=== PATIENT | female | born 1930 | race Caucasian/White ===

== ENCOUNTER 2018-09-30 04:44 | Inpatient (IN) | payer MEDICARE, OTHER ==
[~2018-09-30] VITALS: Ht 152.4 cm; Wt 87.5 kg
[2018-09-30] MEDS ORDERED: DILTIAZEM HCL 30MG TABLET PO ONE (05:15)
[2018-09-30] MEDS ORDERED: ONDANSETRON HCL 4MG/2ML INJ IV STA (05:15)
[2018-09-30] MEDS ORDERED: MORPHINE SULFATE 4 MG/ML CPJ (NOT FOR IM USE) IV STA (05:15)
[2018-09-30] MEDS ORDERED: DILTIAZEM HCL 5MG/ML 5ML VIAL IV ONE ×2 (05:15→06:45)
[2018-09-30 05:52] LABS: CHLORIDE 108 mEq/L (98-107)
[2018-09-30 05:53] LABS: BASOPHILS % 0.4 % (0.0-2.0); EOSINOPHILS % 1.4 % (0.0-5.0); HEMATOCRIT. 40.8 % (36.0-48.0); HEMOGLOBIN. 13.4 g/dL (12.0-16.0); MEAN CORPUSCULAR HEMOGLOBIN 29.9 pg (28.0-32.0); MEAN CORPUSCULAR VOLUME 91.4 fL (81.0-99.0); MEAN PLATELET VOLUME 8.9 fl (7.4-10.4); MONOCYTES % 5.7 % (2.0-8.0); NEUTROPHILS % 57.5 % (40.0-76.0); PLATELET 183 x1000/uL (130-400); RED BLOOD CELL COUNT 4.46 mill/uL (4.2-5.4); RED CELL DISTRIBUTION WIDTH 13.6 % (11.6-14.6)
[2018-09-30 05:56] LABS: PARTIAL THROMBOPLASTIN TIME 28.2 sec (23.4-31.0); PROTHROMBIN TIME 9.8 sec (9.1-11.1)
[2018-09-30 06:22] LABS: *AMPHETAMINES SCREEN URINE NEGATIVE (NEGATIVE); *BARBITURATES SCREEN URINE NEGATIVE (NEGATIVE)
[2018-09-30 06:23] LABS: *BENZODIAZEPINES SCREEN URINE NEGATIVE (NEGATIVE); *COCAINE SCREEN URINE NEGATIVE (NEGATIVE); METHADONE URINE SCREEN NEGATIVE (NEGATIVE); OPIATES URINE SCREEN NEGATIVE (NEGATIVE); PHENCYCLIDINE URINE SCREEN NEGATIVE (NEGATIVE)
[2018-09-30 06:24] LABS: CANNABINOID URINE SCREEN NEGATIVE (NEGATIVE)
[2018-09-30] MEDS ORDERED: ENOXAPARIN 60MG/0.6ML SYR SUBCUT ONE (06:30)
[2018-09-30] MEDS ORDERED: ASPIRIN 81MG TABLET PO ONE (06:30)
[2018-09-30] MEDS ORDERED: DOCUSATE SODIUM 100MG CAPSULE PO PRN (08:00)
[2018-09-30] MEDS ORDERED: MAGNESIUM/ALUMINUM HYDROXIDE/SIMETHICONE 30ML UDC PO PRN (08:00)
[2018-09-30] MEDS ORDERED: ONDANSETRON HCL 4MG/2ML INJ IV PRN (08:00)
[2018-09-30] MEDS ORDERED: HYDROMORPHONE HCL/PF 2MG/ML CPJ IV PRN (08:00)
[2018-09-30] MEDS ORDERED: GUAIFENESIN 200MG/10ML SUGAR FREE UDC PO PRN (08:00)
[2018-09-30] MEDS ORDERED: ACETAMINOPHEN 325MG TABLET PO PRN (08:00)
[2018-09-30] MEDS ORDERED: HYDROCODONE/ACETAMINOPHEN 5/325MG TABLET PO PRN (08:00)
[2018-09-30] MEDS ORDERED: CLONIDINE 0.1MG TABLET PO PRN (08:00)
[2018-09-30] MEDS ORDERED: METOPROLOL TARTRATE 25MG TABLET PO SCH (09:00)
[2018-09-30 12:25] LABS: CLARITY URINE CLOUDY (CLEAR); KETONES URINE NEGATIVE (NEGATIVE); LEUKOCYTE ESTERASE URINE NEGATIVE (NEGATIVE); NITRITE URINE NEGATIVE (NEGATIVE); OCCULT BLOOD URINE 3+ (NEGATIVE); PH URINE 5.5 (4.5-8.0); PROTEIN URINE 1+ (NEGATIVE); SPECIFIC GRAVITY URINE 1.018 (1.005-1.030); UROBILINOGEN URINE 0.2 E.U./dL (0.2-1.0)
[2018-09-30 12:28] LABS: COLOR URINE BLOODY (YELLOW)
[2018-09-30 16:43] VITALS: BP 121/55
[2018-09-30 16:52] VITALS: BP 113/62
[2018-09-30 18:01] LABS: CREATINE KINASE MB FRACTION 2.4 ng/mL (0.5-3.6)
[2018-09-30] MEDS ORDERED: RANI300C8 PO (18:13)
[2018-09-30] MEDS ORDERED: HYDR25TA PO (18:13)
[2018-09-30] MEDS ORDERED: LISI40TA4 PO (18:13)
[2018-09-30] MEDS ORDERED: ASPI-1159 PO (18:13)
[2018-09-30] MEDS ORDERED: AMLO2.5T2 PO (18:13)
[2018-09-30] MEDS ORDERED: GABA-531 PO (18:13)
[2018-09-30] MEDS ORDERED: TOBRDO LEFTEYE (18:13)
[2018-09-30] MEDS ORDERED: REGADENOSON 0.4 MG/5 ML IV NR (18:25)
[2018-09-30] MEDS ORDERED: TOBR5DRO45 LEFTEYE (18:29)
[2018-09-30 20:00] VITALS: BP 148/56
[2018-09-30] MEDS: METOPROLOL TARTRATE 25MG TABLET PO SCH (20:20)
[2018-09-30] MEDS: ASPIRIN 81MG EC TABLET PO SCH (20:22)
[2018-09-30] MEDS: NITROGLYCERIN OINT 1GM/INCH UDPKT TD SCH (20:23)
[2018-10-01] VITALS: BP 118/38
[2018-10-01 04:00] VITALS: BP 134/50
[2018-10-01] MEDS: NITROGLYCERIN OINT 1GM/INCH UDPKT TD SCH ×3 (05:09→20:43)
[2018-10-01 07:27] LABS: BASOPHILS % 0.3 % (0.0-2.0); EOSINOPHILS % 1.3 % (0.0-5.0); HEMATOCRIT. 36.6 % (36.0-48.0); HEMOGLOBIN. 11.9 g/dL (12.0-16.0); LYMPHOCYTES % 30.6 % (20.0-50.0); MEAN CORPUSCULAR HEMOGLOBIN 29.8 pg (28.0-32.0); MEAN CORPUSCULAR VOLUME 91.6 fL (81.0-99.0); MEAN PLATELET VOLUME 8.9 fl (7.4-10.4); MONOCYTES % 6.1 % (2.0-8.0); NEUTROPHILS % 61.7 % (40.0-76.0); PLATELET 186 x1000/uL (130-400); RED BLOOD CELL COUNT 3.99 mill/uL (4.2-5.4); RED CELL DISTRIBUTION WIDTH 13.8 % (11.6-14.6)
[2018-10-01 07:39] LABS: CHLORIDE 108 mEq/L (98-107)
[2018-10-01 07:51] LABS: LDL CHOLESTEROL 93 mg/dL (5-100)
[2018-10-01 07:52] LABS: CREATINE KINASE 53 IU/L (26-192); CREATINE KINASE MB FRACTION 1.1 ng/mL (0.5-3.6)
[2018-10-01 07:53] LABS: HDL CHOLESTEROL 34 mg/dL (40-59); T4 FREE 1.02 ng/dL (0.76-1.46)
[2018-10-01 08:00] VITALS: BP 122/44
[2018-10-01] MEDS: METOPROLOL TARTRATE 25MG TABLET PO SCH ×2 (09:00→20:42)
[2018-10-01] MEDS ORDERED: REGADENOSON 0.4 MG/5 ML IV ONE (09:50)
[2018-10-01] MEDS: ENOXAPARIN 40MG/0.4ML SYR SUBCUT SCH (11:15)
[2018-10-01] MEDS: ASPIRIN 81MG EC TABLET PO SCH (11:15)
[2018-10-01 12:00] VITALS: BP 119/49
[2018-10-01] MEDS: DEXT 5%/0.45% NACL 1000ML 1,000 ML IV SCH (14:15)
[2018-10-01 16:00] VITALS: BP 168/60
[2018-10-01 20:00] VITALS: BP 136/45
[2018-10-02] VITALS: BP 128/50
[2018-10-02 04:00] VITALS: BP 144/62
[2018-10-02] MEDS: NITROGLYCERIN OINT 1GM/INCH UDPKT TD SCH (06:09)
[2018-10-02] MEDS: DEXT 5%/0.45% NACL 1000ML 1,000 ML IV SCH (06:12)
[2018-10-02 07:32] LABS: BASOPHILS % 0.5 % (0.0-2.0); EOSINOPHILS % 1.8 % (0.0-5.0); HEMATOCRIT. 36.8 % (36.0-48.0); HEMOGLOBIN. 12.1 g/dL (12.0-16.0); LYMPHOCYTES % 32.3 % (20.0-50.0); MEAN CORPUSCULAR HEMOGLOBIN 30.3 pg (28.0-32.0); MEAN CORPUSCULAR VOLUME 91.9 fL (81.0-99.0); MEAN PLATELET VOLUME 9.4 fl (7.4-10.4); MONOCYTES % 5.2 % (2.0-8.0); NEUTROPHILS % 60.2 % (40.0-76.0); PLATELET 185 x1000/uL (130-400); RED BLOOD CELL COUNT 4.01 mill/uL (4.2-5.4); RED CELL DISTRIBUTION WIDTH 13.6 % (11.6-14.6)
[2018-10-02 07:40] LABS: CHLORIDE 111 mEq/L (98-107)
[2018-10-02] MEDS: ASPIRIN 81MG EC TABLET PO SCH (09:37)
[2018-10-02] MEDS: ENOXAPARIN 40MG/0.4ML SYR SUBCUT SCH (09:38)
[2018-10-02] MEDS: METOPROLOL TARTRATE 25MG TABLET PO SCH (09:50)
[2018-10-02 09:55] VITALS: BP 137/54
[2018-10-02 12:00] VITALS: BP 135/53
[2018-10-02 12:35] VITALS: BP 131/63
== END 2018-10-02 15:36 | disposition home health service (06) | DRG 198 ==
LOC: ER 04:44 → 7WST 06:57 → EDBEDREQTM 06:59 → EDBEDREQ 06:59 → SUPCPDRO 07:56 → ENRESERV 15:31
PROVIDERS: ADMIT Hospitalist; ATTEND Hospitalist
DX: I20.0 Unstable angina (principal); N17.9 Acute kidney failure, unspecified; E86.0 Dehydration; I50.9 Heart failure, unspecified; I48.91 Unspecified atrial fibrillation; I11.0 Hypertensive heart disease with heart failure; Z86.73 Personal history of transient ischemic attack (TIA), and cerebral infarction without residual deficits; Z79.899 Other long term (current) drug therapy
CPT/HCPCS: 36415; 71045; 78452; 80048; 80061; 80305; 82550; 82553; 83880; 84439; 84443; 84484; 93005; 93017; 93306; 93970; 96372; 96374; 99285; A9500; J1650; J2270; J2405; J2785; J3490